=== PATIENT | female | born 1960 | race African-American/Black ===

== ENCOUNTER 2018-02-14 11:42 | Emergency (ER) | payer OTHER ==
[~2018-02-14] VITALS: Ht 165.1 cm; Wt 99.8 kg
--- NOTE | ~2018-02-14 | EKG ---
[place] [address] [address] [place] [address] ELECTROCARDIOGRAM REPORT Name: SHASHANKMAYRA Room [facility]: [facility]P [id number] Admission: 02/14/18 Attend Phys: Discharge: 02/14/18 Date of : 62 Report #: [id number] THIS REPORT FOR: //name// [facility] ED Test Date: 2018-02-14 Test Time: 12:09:26 Pat Name: MAYRA ENCARNACION Department: Room: Gender: F Or Scrub Tech: Genet ORDONEZ : 1960 Requested By: Nighat Cuenca Order Number: [id number] MD: Baljit Harris Measurements Intervals Mayer Rate: 90 P: 54 IL: 193 QRS: 58 QRSD: 91 T: -71 QT: 376 QTc: 460 Interpretive Statements Sinus rhythm Low voltage, precordial leads Repol abnrm, global ischemia, diffuse leads Baseline wander in lead(s) V6 Compared to ECG 03/07/2014 21:28:46 Early repolarization now present Possible ischemia now present Electronically Signed On 02-14-2018 22:04:56 CDT by Baljit Harris [email or web address] <ELECTRONICALLY SIGNED> By: Baljit Harris MD 02/14/18 [id number] Baljit Harris MD /EPI
[~2018-02-14 11:42] MED LIST: NAPROSYN500 MG PO; NOHOMEMEDICATIONS
[2018-02-14] MEDS ORDERED: SYNTHROID50 MCG PO (11:59)
[2018-02-14 12:14] LABS: ABSOLUTE NEUTROPHILS 2.5 thou/uL (1.4-8.2); BASOPHILS 1.3 % (0.0-2.0); EOSINOPHILS 2.4 % (0.0-3.0); HEMATOCRIT 32.7 % (37.0-47.0); HEMOGLOBIN 10.7 gm/dL (12.0-15.0); LYMPHOCYTES 39.6 % (24.0-44.0); MCH 23.7 pg (26.0-34.0); MCHC 32.8 g/dL (28.0-37.0); MCV 72.2 fL (80.0-100.0); MONOCYTES 9.2 % (1.0-8.0); PLATELET COUNT 339 thou/uL (150-400); POLYS 47.5 % (36.0-66.0); RBC 4.53 mil/uL (4.20-5.00); RDW 17.7 % (10.5-14.5); WBC 5.2 thou/uL (4.0-11.0)
[2018-02-14 12:19] LABS: ANION GAP 9 mmol/L (7-16); BUN 11 mg/dL (7-18); CALCIUM 9.2 mg/dL (8.5-10.1); CHLORIDE 104 mmol/L (98-107); CO2 25 mmol/L (21-32); CREATININE 1.1 mg/dL (0.6-1.0); GLUCOSE 173 mg/dL (74-106); SODIUM 138 mmol/L (136-145)
[2018-02-14 12:27] LABS: TROPONIN-I <0.06 ng/mL (<0.06)
[2018-02-14 13:58] LABS: ANISOCYTOSIS 2+; HYPOCHROMASIA 1+; MICROCYTES 2+; PLATELET ESTIMATE NORMAL
[2018-02-14] MEDS ORDERED: NORCO 5-325 TA1 EACH PO (14:03)
[2018-02-14 14:23] VITALS: BP 122/72
== END 2018-02-14 14:23 | disposition home or self-care (01) ==
LOC: ER 11:42
PROVIDERS: Emergency Medicine
DX: G44.209 Tension-type headache, unspecified, not intractable (principal); M54.12 Radiculopathy, cervical region; R07.9 Chest pain, unspecified; Z88.0 Allergy status to penicillin

== ENCOUNTER 2018-07-16 00:58 | Emergency (ER) | payer OTHER ==
[~2018-07-16] VITALS: Ht 165.1 cm; Wt 99.8 kg
[~2018-07-16 00:58] MED LIST changes: +NORCO 5-325 TA1 EACH PO; +SYNTHROID50 MCG PO
[2018-07-16 01:00] VITALS: BP 158/96
[2018-07-16] MEDS ORDERED: METFORMIN HCL500 MG PO (01:04)
== END 2018-07-16 01:32 | disposition home or self-care (01) ==
LOC: ER 00:58
DX: H69.92 Unspecified Eustachian tube disorder, left ear (principal); Z88.0 Allergy status to penicillin; Z95.0 Presence of cardiac pacemaker